=== PATIENT | male | born 1940 | race Caucasian/White ===

== ENCOUNTER → 2016-11-16 | Outpatient (CLI) | payer MEDICARE, BC ==
[~2016-11-16] MED LIST: ACETAMINOPHEN650 M3 PO; ACYCLOVIR400 MG PO; ALLOPURINOL300 MG PO; B-121000 MC1 SUBQ; CALAN PO; CELEBREX PO; COREG3.125 MG PO; DIFLUCAN100 MG PO; FLAGYL PO; FLEXERIL PO; FOLIC ACID PO; LACRI-LUBE NP OI1 UD OD; LASIX20 MG PO; LEVAQUIN PO; LEVAQUIN750 M1 PO; LISINOPRIL2.5 MG PO; MOBIC15 MG PO; PEN-VEE K PO; PRAVACHOL PO; PRAVASTATIN SOD80 MG PO; PREDNISONE PO; PREDNISONE10 MG PO; PROTONIX PO; SYMBICORT INH; VERAPAMIL ER240 MG PO; VICODIN 5/500 T1 TAB PO; ZOFRAN PO
--- NOTE | ~2016-11-16 | CT114 ---
[facility] A Service of [facility] & [facility] RADIOLOGY TEXT RESULTS PATIENT: JIL SUAREZ LOCATION: [facility] : 41 UNIT #: [id number] AGE: [address]: Mei Lara MD SEX: M ORDER DR: [id number] [facility] [address] [place], [place] [address] [id number] O MR#: [id number] Acc #: [id number] NAME: JIL SUAREZ : 1940 SEX: M STUDY DATE/TIME: 11/16/2016 7:50 UNIT: [facility] ROOM: STUDY DESCRIPTION: CT Soft Tissue Neck W Cont Attending Physician: Mei Lara M.D. Ordering Physician: Mei Lara M.D. Primary Care Physician: Julius Swartz M.D. MEDICAL IMAGING REPORT This report is preliminary unless electronic signature is present EXAM Soft tissue neck CT with contrast, 11/16/2016 PROCEDURE Axial contrast enhanced soft tissue neck CT with multiplanar reformats. This CT exam was performed with one or more of the following radiation dose reduction techniques: automatic exposure control, adjustment of mA and/or kV according to patient size, and iterative reconstruction. HISTORY Leukemia. Routine follow-up. No new symptoms. FINDINGS Redemonstrated bilateral cervical adenopathy but clearly decreased since the study of 06/24/2016. Index nodes measured on the prior exam include a left posterior cervical node previously measured at 2.4 x 2.2 cm, which now measures about 9.0 x 9.0 mm, a left supraclavicular node previously measured at 2.6 x 1.8 cm which now measures 1.5 x 1.3 cm, and an upper mediastinal right paratracheal node previously measured at 2.1 x 1.2 cm, currently measuring about 2.1 x 0.8 cm. A right level 4 node just posterior to the right lobe of the thyroid gland was previously measured at about 1.4 x 0.9 cm and currently measures about 1.2 x 0.9 cm. No areas of enlarging adenopathy are seen in the neck on either side. No new masses are identified. There is spinal degenerative change and there is plaque at the cervical carotid bifurcations as on the prior study. The jugular veins remain normally patent. The visualized base of the brain and orbital structures are normal as are the lung apices. There is mild spinal degenerative change but no bone erosion or destruction or other acute bony abnormality. [facility]. [facility] A Service of [facility] RADIOLOGY TEXT RESULTS PATIENT: JIL SUAREZ LOCATION: [facility] : 41 UNIT #: [id number] AGE: [address]: Mei Lara MD SEX: M ORDER DR: IMPRESSION See measurements above, but decreased cervical adenopathy when compared to the most recent prior exam of 06/24/2016 and no new or growing lymph nodes are identified. Dictated by... Joseph Delacruz M.D. THIS IS AN ELECTRONICALLY VERIFIED REPORT Joseph Delacruz M.D. at 11/19/2016 1:48 PM TIFFANIE/pat TD: 11/17/2016 10:56 JOB #: [id number] MEDICAL IMAGING REPORT Page 1 of 1 COPY
--- NOTE | ~2016-11-16 | CT2 ---
[facility] A Service of [facility] & [facility] RADIOLOGY TEXT RESULTS PATIENT: JIL SUAREZ LOCATION: [facility] : 41 UNIT #: [id number] AGE: [address]: Mie Lara MD SEX: M ORDER DR: [id number] [facility] [address] [place], [place] [address] [id number] O MR#: [id number] Acc #: [id number] NAME: JIL SUAREZ : 1940 SEX: M STUDY DATE/TIME: 11/16/2016 7:50 UNIT: [facility] ROOM: STUDY DESCRIPTION: CT Abd and Pelv W Cont Attending Physician: Mei Lara M.D. Ordering Physician: Mei Lara M.D. Primary Care Physician: Julius Swartz M.D. 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 Patient states leukemia followup. Patient states no current complaints. Observation for metastatic disease. Restaging. COMPARISON CT abdomen and pelvis with contrast 06/24/2016. PROCEDURE 5 mL axial images from the lung bases through the lesser trochanters after intravenous contrast administration. Enteric contrast was not administered. The CT exam was performed with one or more of the following radiation dose reduction techniques: automatic exposure control, adjustment of mA and/or kV according to patient size, and iterative reconstruction. ABDOMEN FINDINGS: Bulky retroperitoneal adenopathy appears slightly improved. For example, one left periaortic node measures 2.4 x 1.6 cm compared to 3.3 x 2.3 cm previously. Another left periaortic node appears roughly stable measuring 2.3 x 1.8 cm compared to 2.3 x 2.7 cm previously. Mesenteric adenopathy persists, stable to very minimally improved. The dominant index mesenteric node is stable at 1.5 cm. A right retrocrural node is slightly smaller measuring 2.1 x 1.3 cm compared to 2.6 x 1.9 cm on prior. A left common iliac chain node is slightly smaller measuring 1.8 x 1.2 cm compared to 1.8 x 1.7 cm previously. [facility] A Service of [facility] RADIOLOGY TEXT RESULTS PATIENT: JIL SUAREZ LOCATION: [facility] : 41 UNIT #: [id number] AGE: [address]: Mei Lara MD SEX: M ORDER DR: A lobulated cyst is seen in the lateral left hepatic segment measuring 3.4 cm, stable. Spleen size is mildly enlarged measuring up to 15.1 cm craniocaudal improved compared to the previous examination where measured 17.9 cm. No focal splenic lesion is seen. The pancreas, adrenals and right kidney are normal. Left renal cyst unchanged. Moderate calcific atherosclerosis in the abdominal aorta and bilateral common arteries. Small umbilical hernia contains only fat. Diverticular changes within the colon without evidence of acute diverticulitis. PELVIS FINDINGS: Bilateral internal and external iliac chain adenopathy persists, thought to be stable. A right external iliac chain node measures 1.5 cm short axis, left external iliac chain measures 1.3 cm short axis, similar to prior. No new adenopathy is seen. No ascites. Urinary bladder within normal limits. Tiny left inguinal hernia contains only fat. No acute osseous abnormalities. IMPRESSION 1. Slight interval improvement in nuris metastatic disease within the abdomen compared to 06/24/2016. The nuris disease in the pelvis appears roughly stable. 2. Splenomegaly, improved since 06/24/2016. Dictated by... Ruthie Perez M.D. THIS IS AN ELECTRONICALLY VERIFIED REPORT Ruthie Perez M.D. at 11/19/2016 8:30 AM [facility]/fredo TD: 11/16/2016 10:15 JOB #: [id number] MEDICAL IMAGING REPORT Page 1 of 1 COPY
--- NOTE | ~2016-11-16 | CT55 ---
[facility] A Service of [facility] & [facility] RADIOLOGY TEXT RESULTS PATIENT: JIL SUAREZ [facility] UNIT #: [id number] AGE: [address]: Mei Lara MD SEX: M ORDER DR: [id number] [facility] [address] [place], [place] [address] [id number] O MR#: [id number] Acc #: [id number] NAME: JIL SUAREZ : 1940 SEX: M STUDY DATE/TIME: 11/16/2016 7:50 UNIT: [facility] ROOM: STUDY DESCRIPTION: CT Chest W Con Attending Physician: Mei Lara M.D. Ordering Physician: Mei Lara M.D. Primary Care Physician: Julius Swartz M.D. MEDICAL IMAGING REPORT This report is preliminary unless electronic signature is present EXAM CT chest with contrast, 11/16/2016 HISTORY Chronic lymphocytic leukemia B cell type according to the physician's history. Patient states leukemia followup. No current complaints. Observation metastatic disease. Restaging. COMPARISON CT angiography of the chest pulmonary embolism protocol 07/11/2016. PROCEDURE 5.0 mm axial images from the thoracic inlet through the upper abdomen after intravenous contrast administration. Sagittal and coronal reformatted images were obtained. TECHNIQUE This CT exam was performed with one or more of the following radiation dose reduction techniques: automatic exposure control, adjustment of mA and/or kV according to patient size, and iterative reconstruction. FINDINGS Mediastinal adenopathy appears grossly stable. This includes index subcarinal node measuring 1.8 cm short axis, AP window node measuring 1.6 x 1.2 cm short axis, and right lower paratracheal-precarinal node measuring 1.1 cm. Right hilar node is approximately stable at 2.7 x 1.9 cm compared to 3.0 x 2.0 cm on the previous study. Smaller left infrahilar lymph node is stable. Right hilar adenopathy appears grossly stable with a dominant node measuring 1.1 x 1.9 cm. Left axillary adenopathy appears improved. An index left axillary node [facility] A Service of [facility] & [facility] RADIOLOGY TEXT RESULTS PATIENT: JIL SUAREZ LOCATION: [facility] : 41 UNIT #: [id number] AGE: [address]: Mei Lara MD SEX: M ORDER DR: measures 1.5 x 1.1 cm compared to 3.3 x 2.3 cm on the previous exam. No new adenopathy is seen. New focal patchy alveolar density has developed in the left lower lobe measuring up to 1.8 cm. Infectious-inflammatory etiology is favored. Another subpleural nodular type density is seen within the posterior right lower lobe measuring 8.0 mm. It is new since the prior exam but favored to represent benign etiology. A 5.0 mm nodule is present within the anterior inferior right upper lobe (series 9, image 22), new since the previous exam. Stable cardiac enlargement. Coronary artery calcifications. No pericardial effusion or pleural effusion. No suspicious osteolytic or osteoblastic lesions are identified. IMPRESSION 1. Stable mild improvement in nuris metastatic disease in the chest since 07/11/2016. Left axillary adenopathy has diminished, while adenopathy within the mediastinum, right hilum and right axilla otherwise appear stable. 2. Peripheral somewhat patchy densities are demonstrated along the subpleural margins of the bilateral lower lobes, and a 5.0 noncalcified nodule is seen in the anterior inferior right upper lobe. These are new since 07/11/2016. Benign infectious-inflammatory etiology favored. Continued attention at surveillance imaging is recommended. 3. CT abdomen and pelvis performed on the same date has been dictated separately. Dictated by... Ruthie Perez M.D. THIS IS AN ELECTRONICALLY VERIFIED REPORT Ruthie Perez M.D. at 11/19/2016 8:30 AM Amisha TD: 11/16/2016 09:58 JOB #: [id number] MEDICAL IMAGING REPORT Page 1 of 1 COPY
[2016-11-16 11:21] LABS: POC - CREATININE 1.01 mg/dL (0.64-1.27); POC - GFR >60.0 mL/min (>60)
== END | disposition home or self-care (01) ==
LOC: CCAT 07:12
PROVIDERS: Internal Medicine Hematology
DX: C78.00 Secondary malignant neoplasm of unspecified lung (principal); C79.89 Secondary malignant neoplasm of other specified sites; C91.10 Chronic lymphocytic leukemia of B-cell type not having achieved remission; L03.211 Cellulitis of face; L57.8 Other skin changes due to chronic exposure to nonionizing radiation; E86.0 Dehydration; R16.1 Splenomegaly, not elsewhere classified; R59.0 Localized enlarged lymph nodes
CPT/HCPCS: 70491; 71260; 74177; 82565; Q9967

== ENCOUNTER 2017-01-08 10:31 | Emergency (ER) | payer MEDICARE, BC ==
--- NOTE | ~2017-01-08 | CR63 ---
[facility] A Service of [facility] & [facility] RADIOLOGY TEXT RESULTS PATIENT: JIL SUAREZ LOCATION: [facility] : 41 UNIT #: [id number] AGE: [address]: Hima Thornton MD SEX: M ORDER DR: [id number] [facility] [address] [place], [place] [address] [id number] E MR#: [id number] Acc #: [id number] NAME: JIL SUAREZ : 1940 SEX: M STUDY DATE/TIME: 01/08/2017 11:43 UNIT: [facility] ROOM: STUDY DESCRIPTION: CR Chest 2 View Attending Physician: Luis Thornton M.D. Ordering Physician: Ed Mukund Yoder M.D. Primary Care Physician: Julius Swartz M.D. MEDICAL IMAGING REPORT This report is preliminary unless electronic signature is present EXAM Chest, 2 views, 01/08/2017, 1143 hours. HISTORY 76-year-old man with a 2-day history of sore throat, cough, congestion, and shortness of air. History of leukemia and lymphoma. COMPARISON 07/10/2016 FINDINGS Upright PA and lateral views of the chest demonstrate heart size at the upper limits of normal with mildly tortuous aorta. The hilar contours are normal. There is hazy density at the medial right lung base which may project over the posterior heart on the lateral view raising concern for a 3.5 cm area of consolidation which could represent pneumonia. Atelectasis is also a consideration. The left lung is clear and there are no effusions. IMPRESSION There is no detectable adenopathy on plain film. Heart size is stable at the upper limits of normal. There is hazy density at the medial right lung base which may project over the posterior heart on the lateral view with a 3.5 cm area of increased density seen. This is new from CT chest 11/16/2016. Findings could represent atelectasis or pneumonia. No effusions are seen. Dictated by... Loretta Mcwilliams M.D. THIS IS AN ELECTRONICALLY VERIFIED REPORT [facility] A Service of [facility] & [facility] RADIOLOGY TEXT RESULTS PATIENT: JIL SUAREZ [id number] 41 UNIT #: [id number] AGE: [address]: Hima Thornton MD SEX: M ORDER DR: Loretta Mcwilliams M.D. at 01/08/2017 5:38 PM [facility]/nurys TD: 01/08/2017 14:59 JOB #: [id number] MEDICAL IMAGING REPORT Page 1 of 1 COPY
[2017-01-08 11:26] LABS: BASOPHIL# 0.2 X10e3 (0-0.3); BASOPHIL% 1.3 % (0-2.5); EOSINOPHIL% 0.2 % (0.0-7.0); HEMATOCRIT 39.1 % (38.0-50.0); HEMOGLOBIN 12.8 gm/dL (13.0-16.0); LYMPHOCYTE# 5.9 X10e3 (1.0-3.5); LYMPHOCYTE% 49.4 % (17.0-45.0); MEAN CELL VOLUME 96.2 FL (83-96); MEAN CORPUSCULAR HEMOGLOBIN 31.6 PG (28-34); MEAN CORPUSCULAR HGB CONC 32.9 g/dL (30-36); MEAN PLATELET VOLUME 8.9 FL (6.5-11.5); MONOCYTE# 0.3 X10e3 (0-1.0); MONOCYTE% 2.3 % (3.0-12.0); NEUTROPHIL# 5.6 X10e3 (1.5-7.1); NEUTROPHIL% 46.8 % (40-75); PLATELET COUNT 100 X10e3 (140-420); RED BLOOD COUNT 4.06 X10e (3.90-5.60); RED CELL DISTRIBUTION WIDTH 15.7 % (11.0-15.5); WHITE BLOOD COUNT 11.9 X10e3 (4.0-10.5)
[2017-01-08 11:27] LABS: DIFF IND YES
[2017-01-08 11:51] LABS: BUN/CREATININE RATIO 18.46; CALCIUM SERUM 9.5 mg/dL (8.4-10.2); CREATININE SERUM 1.3 mg/dL (0.6-1.4); GLOM FILT RATE Estimated 53.4 mL/min (>60); POTASSIUM 3.9 mmol/L (3.5-5.1)
[2017-01-08 13:40] LABS: ANISOCYTOSIS SL; PLATELET ESTIMATE DECREASED (NORMAL); TEAR DROP CELLS PRESENT
[2017-01-08 13:41] LABS: REACTIVE LYMPHS PRESENT
== END 2017-01-08 15:21 | disposition home or self-care (01) ==
LOC: CFTX 10:31 → CED 10:31
PROVIDERS: Emergency Medicine
DX: J18.1 Lobar pneumonia, unspecified organism (principal); C95.90 Leukemia, unspecified not having achieved remission; Z79.899 Other long term (current) drug therapy
CPT/HCPCS: 36415; 71020; 80048; 85025; 87040; 96365; 99284; J0696